=== PATIENT | female | born 1930 | race Caucasian/White ===

== ENCOUNTER 2017-05-15 15:30 | Observation (INO) | payer MEDICARE, BC ==
[2017-05-15 16:11] LABS: ALT (SGPT) 21 U/L (8-55); AST (SGOT) 23 U/L (5-34); Alkaline Phosphatase 83 U/L (40-150); Anion Gap 11 mmol/L (10-20); BUN (Urea Nitrogen) 21 mg/dL (9.8-20.1); Bilirubin, Total 0.3 mg/dL (0.2-1.2); Calc. Creatinine Clearance 0 mL/min (70-130); Calcium 9.3 mg/dL (7.8-10.44); Carbon Dioxide 31 mmol/L (23-31); Chloride 99 mmol/L (98-107); Estimated GFR-MDRD 57; Globulin 2.7 g/dL (2.4-3.5); Protein, Total 6.4 g/dL (6.0-8.3)
[2017-05-15 16:16] LABS: #Basophils 0.1 thou/uL (0.0-0.2); #Eosinphils 0.1 thou/uL (0.0-0.7); #Lymphocytes 3.5 thou/uL (1.20-3.40); #Monocytes 0.8 thou/uL (0.11-0.59); #Neutrophils 10.9 thou/uL (1.40-6.50); %Basophils 0.4 % (0.0-1.0); %Eosinophils 0.9 % (0.0-10.0); %Lymphocytes 22.6 % (21.0-51.0); %Monocytes 5.4 % (0.0-10.0); Mean Platelet Volume 7.3 fL (7.4-10.4); Red Blood Cell (RBC) Count 4.21 mill/uL (4.20-5.40); White Blood Cell (WBC) Count 15.5 thou/uL (4.8-10.8)
[2017-05-15] MEDS ORDERED: Enoxaparin Sodium 100 MG/ML SYRINGE ONE (17:21)
--- NOTE | 2017-05-15 17:24 | RAD ---
AP VIEW PELVIS: Date: 05/15/17 HISTORY: 86-year-old female with history of swelling and erythema left thigh. FINDINGS: AP view pelvis obtained. There is an AxiaLIF screw in the lumbosacral region. The pelvis is unremarka ble. No evidence of pelvic fractures, subluxations, or bony lesions seen. IMPRESSION: Unremarkable AP view of pelvis. POS: [facility]
--- NOTE | 2017-05-15 17:29 | RAD ---
2 VIEWS LEFT HIP: Date: 05/15/17 COMPARISON: None. HISTORY: Swelling, erythema, pain radiating down left lower extremity. FINDINGS: Body habitus limits detailed assessment. There is no displaced fracture or evidence of dislocation se en. Metallic screw overlies the lumbosacral junction. IMPRESSION: No displaced fracture or evidence of dislocation seen. POS: [facility]
[2017-05-15 17:31] LABS: PTT 29.1 SEC (22.9-36.1); Prothrombin Time 13.1 SEC (12.0-14.7)
--- NOTE | 2017-05-15 17:31 | ULT ---
LEFT LOWER EXTREMITY VENOUS DOPPLER ULTRASOUND EVALUATION: Date: 05/15/17 HISTORY: Left lower extremity pain and edema. TECHNIQUE: Multiple longitudinal and transverse images of the left lower extremity venous systems is obtained us ing a multihertz linear array transducer. Real-time, color flow, and spectral waveform Doppler analys is used to evaluate left lower extremity venous systems. FINDINGS: Images demonstrate noncompressible clot seen in the distal left superficial femoral vein. Normal flow and no evidence of clot is seen in the left common femoral vein, proximal mid superficial femoral ve in, popliteal vein, posterior tibial vein, and post-trifurcation veins. In addition, the left greater saphenous vein is also patent. IMPRESSION: Some noncompressible clot is present in the distal left superficial femoral vein. This is compatible with acute clot. POS: [facility]
[2017-05-15 17:39] LABS: Troponin I Less than 0.010 ng/mL (< 0.028)
[2017-05-15] MEDS ORDERED: Meropenem 1 GM in Sodium Chloride 0.9% 100 ML IVPB SCH (18:30)
--- NOTE | 2017-05-15 18:47 | RAD ---
ONE VIEW CHEST: History: Cough. Left leg swelling and pain. Comparison: None. FINDINGS: Atherosclerosis of the aorta. Normal cardiac silhouette. The pulmonary vessels and hilum are normal. Costophrenic angles are clear. Partial obscuration of the descending thoracic aorta due to left lower lobe infiltrate. There is no pneumothorax or osseous abnormality. Coronary artery stent is identifie d. IMPRESSION: 1. Left lower lobe infiltrate. 2. Atherosclerosis of the aorta. POS: [facility]
[2017-05-15 18:49] LABS: Lactic Acid - Sepsis 3.2 mmol/L (0.5-2.2)
[2017-05-15] MEDS ORDERED: Acetaminophen 500 MG TAB ONE (19:24)
[2017-05-15 21:05] LABS: Bilirubin Negative (Negative); Blood, Urine Small (Negative); Glucose, Urine (Dipstick) Negative (Negative); Ketone, Urine Negative (Negative); Nitrite Negative (Negative); Protein, Urine (Dipstick) Negative (Neg-Trace); Urobilinogen 0.2 mg/dL (0.2-1.0)
[2017-05-15 21:07] LABS: Bacteria/HPF 2+ HPF (None Seen); Hyaline Casts/LPF 7-10 HYALINE CAST LPF (0-3 Hyaline); RBC/HPF 21-50 HPF (0-3); Squamous Epithelial None Seen HPF (0-3)
--- NOTE | 2017-05-15 22:04 | PDOC.EVN ---
Event Note - Event Note Event Note: [id number] 1. UTI 2. Left superficial vein thrombus 3. HTN 4. H/O GERD PLAn SEE ORDERS
[2017-05-15] MEDS ORDERED: Sodium Chloride 0.9% 1,000 ML IV SCH (23:00)
[2017-05-15] MEDS ORDERED: Acetaminophen 325 MG TAB PO PRN (23:00)
[2017-05-15] MEDS ORDERED: hydrALAZINE 20 MG/ML VIAL SLOW IVP PRN (23:04)
[2017-05-16] MEDS ORDERED: Melatonin 3 MG TAB PO PRN (02:32)
[2017-05-16] MEDS ORDERED: HYDROcodone/Acetaminophen 5/325 mg Tablet ONE ×3 (02:33→15:36)
--- NOTE | 2017-05-16 03:21 | HP ---
DATE OF ADMISSION: 05/15/2017 CHIEF COMPLAINT: Left leg swelling and pain. HISTORY OF PRESENT ILLNESS: Patient is an 86-year-old female with the past medical history of hyperl ipidemia, chronic back pain, hypertension, GERD, neuropathy, now complaining of left leg pain. Patie nt complains of left leg pain for the past 1 month, but the pain persisted today. The patient compla ins leg swelling for the past few days, pain is mainly on the left leg 10/10, currently 5/10, improve s with some pain medication. Complains of swelling and redness also. Denies any fever, denies any c hills, denies any nausea, denies any vomiting, denies any chest pain, denies any trouble breathing. PAST MEDICAL HISTORY: As per HPI. PAST SURGICAL HISTORY: Hysterectomy, bilateral knee surgeries. SOCIAL HISTORY: Denies smoking, denies alcohol, denies any drugs. FAMILY HISTORY: Positive for heart problems. MEDICATIONS: Reviewed. ALLERGIES: PENICILLIN and SULFA. REVIEW OF SYSTEMS: Constitutional: Denies any fever, denies any chills. Eyes: Denies any vision p roblems. Ears: Denies any hearing loss. Neck: Denies any neck pain. Cardiovascular system: Jf es any chest pain. Respiratory system: Denies any cough, denies any sputum production. Gastrointes tinal: Denies nausea, denies vomiting. Musculoskeletal: Positive for left leg swelling and pain. Cranial nerve system: Denies syncope. Psychiatric: Denies anxiety. Integument: Denies any rash. All other review of systems are reviewed and are negative. PHYSICAL EXAMINATION: CONSTITUTIONAL/VITAL SIGNS: At the time of H and P performed, temperature is 99.2, heart rate 109/69 , pulse ox 97%, heart rate 75. GENERAL: Patient appears comfortable. HEENT: Anterior naris patent. Nose normal. Ears normal. Teeth intact. Tongue is moist. NECK: Supple, no JVD. CARDIOVASCULAR SYSTEM: S1, S2 present. Regular rate and rhythm, no murmurs, no rubs, no gallops. RESPIRATORY SYSTEM: No wheezing, no rhonchi. Breath sounds present bilaterally. GASTROINTESTINAL: Abdomen is soft, nontender, no guarding, no organomegaly, no masses felt. MUSCULOSKELETAL: Left leg positive for swelling. INTEGUMENTARY: Positive for left leg erythema at the thigh. PSYCHIATRIC: Mood is appropriate at this time. CRANIAL NERVOUS SYSTEM: Cranial nerves intact. Follows commands. Strength intact. Sensory intact. LABORATORY DATA: Labs at the time of H and P performed, UA positive for wbc's greater than 50, 2+ ba cteria. BMP showed sodium 137, potassium 3.7, chloride 99, CO2 31, BUN of 21, creatinine 0.93. Whit e count 15.1, hemoglobin 13.4, platelet count is 259. PT 13.1, INR 1. ASSESSMENT AND PLAN: The patient is an 86-year-old female: 1. Left leg swelling plus left superficial vein thrombosis. Plan to continue Lovenox. ED physician did speak to the Oncologist. We will wait for that input. We will monitor the patient closely. 2. Urinary tract infection. Plan to start patient on intravenous meropenem and plan to send urine f or culture and sensitivity. 3. History of hypertension, monitor blood pressures, continue home blood pressure medications. 4. History of neuropathy. Continue Neurontin. 5. History of gastroesophageal reflux disease. Continue proton pump inhibitor. The case was discussed in detail with the patient. Patient is FULL CODE.
[2017-05-16 04:06] LABS: #Eosinphils 0.4 thou/uL (0.0-0.7); #Lymphocytes 3.7 thou/uL (1.20-3.40); #Monocytes 0.6 thou/uL (0.11-0.59); #Neutrophils 4.4 thou/uL (1.40-6.50); %Basophils 0.5 % (0.0-1.0); %Eosinophils 4.4 % (0.0-10.0); %Lymphocytes 40.4 % (21.0-51.0); %Monocytes 6.6 % (0.0-10.0); Hematocrit 36.2 % (36.0-47.0); Mean Platelet Volume 7.5 fL (7.4-10.4); Red Blood Cell (RBC) Count 3.75 mill/uL (4.20-5.40); White Blood Cell (WBC) Count 9.1 thou/uL (4.8-10.8)
[2017-05-16 04:19] LABS: Anion Gap 11 mmol/L (10-20); BUN (Urea Nitrogen) 18 mg/dL (9.8-20.1); Calc. Creatinine Clearance 0 mL/min (70-130); Calcium 8.7 mg/dL (7.8-10.44); Carbon Dioxide 27 mmol/L (23-31); Chloride 103 mmol/L (98-107); Estimated GFR-MDRD 67
[2017-05-16 05:52] LABS: Anion Gap 10 mmol/L (10-20); BUN (Urea Nitrogen) 18 mg/dL (9.8-20.1); Calc. Creatinine Clearance 0 mL/min (70-130); Calcium 8.6 mg/dL (7.8-10.44); Carbon Dioxide 28 mmol/L (23-31); Chloride 104 mmol/L (98-107); Estimated GFR-MDRD 67; Magnesium 1.6 mg/dL (1.6-2.6)
[2017-05-16] MEDS ORDERED: Meropenem 1 GM in Sodium Chloride 0.9% 100 ML IVPB SCH (06:00)
[2017-05-16] MEDS ORDERED: Enoxaparin Sodium 100 MG/ML SYRINGE ONE (10:32)
[2017-05-16] MEDS ORDERED: Acetaminophen 650 MG Suppository ONE (11:39)
[2017-05-16] MEDS ORDERED: Acetaminophen 325 MG TAB ONE (11:40)
--- NOTE | 2017-05-16 13:07 | PDOC.PN ---
- Subjective Encounter Start Date: 05/16/17 Encounter Start Time: 11:00 Subjective: still has pain in left LE, no sob -: has been wheelchair bound from atleast 2 yrs now due to severe back pain -: no chest pain or palp - Objective MAR Reviewed: Yes Result Diagrams: 05/16/17 03:30 05/16/17 05:11 Phys Exam - Physical Examination HEENT: PERRLA, moist MMs Neck: no JVD, supple Respiratory: no wheezing, no rales Cardiovascular: RRR, no significant murmur Gastrointestinal: soft, no distention, positive bowel sounds Musculoskeletal: no edema, pulses present Neurological: non-focal, moves all 4 limbs Psychiatric: A&O x 3 Dx/Plan (1) Thrombophlebitis of leg, left, superficial Code(s): I80.02 - PHLEBITIS AND THOMBOPHLB OF SUPERFIC VESSELS OF L LOW EXTREM Status: Acute (2) Chronic back pain Code(s): M54.9 - DORSALGIA, UNSPECIFIED; G89.29 - OTHER CHRONIC PAIN Status: Chronic Qualifiers: Back pain location: low back pain (3) SVT (supraventricular tachycardia) Code(s): I47.1 - SUPRAVENTRICULAR TACHYCARDIA Status: Acute (4) UTI (urinary tract infection) Status: Acute Qualifiers: Urinary tract infection type: acute cystitis Hematuria presence: without hematuria Qualified Code(s): N30.00 - Acute cystitis without hematuria (5) HTN (hypertension) Code(s): I10 - ESSENTIAL (PRIMARY) HYPERTENSION Status: Chronic Qualifiers: Hypertension type: essential hypertension Qualified Code(s): I10 - Essential (primary) hypertension - Plan home meds to be updated on system -: is on meropenem for uti, will scale down antibiotics once prelim cs are rolando -: has poor functional status with supf dvt, hence on lovenox 90q12h -: pt is DNR, I have confirmed this with her, also she has willed her body to -: -A&[facility]. Lives at [facility] * . Review of Systems - Medications/Allergies Allergies/Adverse Reactions: Allergies Allergy/AdvReac Type Severity Reaction Status Date / Time Penicillins Allergy Unverified 05/15/17 18:16 Sulfa (Sulfonamide Allergy Unverified 05/15/17 18:16 Antibiotics) Medications: Current Medications Acetaminophen (Tylenol) 650 mg PO Q4H PRN PRN Reason: Headache/Fever or Pain Hydrocodone Bitart/Acetaminophen ([place] 5/325) 1 tab PO Q4H PRN PRN Reason: Moderate Pain (4-6) Enoxaparin Sodium (Lovenox) 90 mg SC 0900,2100 YADY Hydralazine HCl (Apresoline) 5 mg SLOW IVP Q4H PRN PRN Reason: SBP Greater Than 170 Meropenem 1 gm/ Sodium (Chloride) 100 mls @ 200 mls/hr IVPB Q8HR YADY Sodium Chloride (Normal Saline 0.9%) 1,000 mls @ 50 mls/hr IV .Q20H YADY Melatonin (Melatonin) 6 mg PO HS PRN PRN Reason: Insomnia Sodium Chloride (Flush - Normal Saline) 10 ml IVF Q12HR YADY Sodium Chloride (Flush - Normal Saline) 10 ml IVF PRN PRN PRN Reason: Saline Flush
[2017-05-16] MEDS: MEROPENEM 1 GM/50 ML 1 GM in Premix Bag 1 BAG IVPB SCH ×2 (14:00→21:13)
[2017-05-16 17:58] VITALS: BMI 33.4
[2017-05-16] MEDS: Sodium Chloride 0.9% 1,000 ML IV SCH ×2 (18:11→21:17)
[2017-05-16] MEDS: Enoxaparin Sodium 100 MG/ML SYRINGE SC SCH ×2 (18:11→20:28)
--- NOTE | 2017-05-16 19:34 | CON ---
DATE OF CONSULTATION: 05/16/2017 REASON FOR CONSULTATION: DVT. HISTORY OF PRESENT ILLNESS: Ms. Rm is a pleasant 86-year-old female, who is wheelchair bound for chronic back pain. She complained of left leg pain and swelling for the past month. She admits to occasional erythema. Denies any chest pain or shortness of breath. She was sent to the emergency room for evaluation. A vascular ultrasound showed a clot in the distal left superficial femoral vein. She had a hip and pelvis x-ray, which were unremarkable. She had a chest x-ray, which showed a left lower lobe infiltrate. She had leukocytosis with a WBC count of 15.5 on arrival. The patient was started on Lovenox 90 mg b.i.d. She received a dose of meropenem for possible pneumonia and has been admitted for further treatment. We were asked for recommendations regarding anticoagulation. PAST MEDICAL HISTORY: 1. Hyperlipidemia. 2. Chronic back pain. 3. Hypertension. 4. Gastroesophageal reflux disease. 5. Neuropathy. 6. Frequent urinary tract infections. PAST SURGICAL HISTORY: Hysterectomy and bilateral knee replacement. ALLERGIES: PENICILLIN and SULFA. HOME MEDICATIONS: Reviewed from her facility paperwork. FAMILY HISTORY: Her daughter from esophageal cancer. SOCIAL HISTORY: , lives at a correction facility. No alcohol, tobacco, or illicit drug use. REVIEW OF SYSTEMS: Ten-point review of systems is negative except for noted in HPI. PHYSICAL EXAMINATION: VITAL SIGNS: Currently pending. GENERAL: This is a well-developed, well-nourished female in no acute distress. HEENT: Normocephalic, atraumatic. Pupils equal and reactive to light. NECK: Supple. CARDIOVASCULAR: Regular rate and rhythm. LUNGS: Clear to auscultation. ABDOMEN: Soft, nontender, bowel sounds are positive. EXTREMITIES: She has mild swelling in the left lower extremity. No erythema. GENITOURINARY: She has a Hodges catheter in place. SKIN: No rash. HEMATOLOGIC: No petechia or purpura. NEUROLOGICAL: Nonfocal. PSYCHIATRIC: The patient is alert and oriented and appropriate. PERTINENT LABORATORY AND X-RAYS: Current WBCs are 9.1, hemoglobin 11.9, hematocrit 36.2, platelet count is 198,000. She has got 48% neutrophils, 40% lymphocytes. PT is 13.1, INR is 1.0, PTT is 29.1. Sodium is 138, potassium 3.5 , chloride 104, CO2 is 28, BUN is 18, creatinine 0.81, lactic acid is 1.2, calcium 8.6, magnesium is 1.6, total bilirubin 0.3, AST is 23, ALT is 21, alkaline phosphatase is 83. CK-MB is 1.1, troponin is less than 0.010. BNP is 57.1. Serum total protein 6.4, albumin 3.4, globulin is 2.7. Urine showed 2+ bacteria with large leukocyte esterase. IMPRESSION: 1. Left lower extremity deep venous thrombosis. 2. Urinary tract infection. DISCUSSION: The patient is wheelchair bound and requires maximum assistance from the bed to the wheelchair. She is at low risk for fall given her maximum assistance. She should continue anticoagulation for her DVT. Recommend oral anticoagulation. She would need to take anticoagulation for 3 months. This can be managed by her primary care. Thank you for allowing us to give our recommendations. JULY
[2017-05-16] MEDS ORDERED: Ondansetron HCl/PF 4 MG/2 ML Vial SLOW IVP PRN (20:02)
[2017-05-16] MEDS: HYDROcodone/Acetaminophen 5/325 mg Tablet PO PRN (21:12)
--- NOTE | 2017-05-16 22:42 | CON ---
DATE OF CONSULTATION: 05/16/2017 HISTORY OF PRESENT ILLNESS: Patient is an 86-year-old woman with a history of hypertension, who was found to have an irregular heart rhythm. The patient presented to the emergency room with nausea, vomiting, and left leg pain. She underwent an ultrasound, which revealed her to have evidence of a superficial venous thrombosis. While on telemetry, the patient was noted to have an irregular heart rhythm. The patient denied having any palpitations. The patient has no known cardiac history. She denies having any chest discomfort or dyspnea. The patient lives in a prison and is wheelchair bound. PAST MEDICAL HISTORY: 1. Severe chronic back pain. 2. Hypertension. 3. Depression. 4. Gastroesophageal reflux. PAST SURGICAL HISTORY: Cholecystectomy and hysterectomy. SOCIAL HISTORY: Nonsmoker. ALLERGIES: She is allergic to PENICILLIN and SULFA. MEDICATIONS ON ADMISSION: Include Lipitor 10 mg Monday, Monday, and Monday; metoprolol 25 XL daily; Prilosec 20 daily; aspirin 81 daily; Colace 100 b.i.d.; melatonin 5 daily; omeprazole 20 daily; fentanyl 50 mcg tablet every third day ; gabapentin 300 daily, ciprofloxacin 250 daily. REVIEW OF SYSTEMS: Ten-point system otherwise is noticeable for nausea, vomiting, and abdominal discomfort. Ten-point system, otherwise unremarkable. PHYSICAL EXAMINATION: GENERAL: Obese woman in no acute distress. VITAL SIGNS: Blood pressure 173/109. NECK: Full. LUNGS: Clear to auscultation. HEART: Regular rate and rhythm, normal S1, S2, 2/6 systolic murmur. ABDOMEN: Distended. EXTREMITIES: Showed trace edema. SKIN: Warm and dry. NEUROLOGIC: Nonfocal. VASCULAR: Radial pulses are 2+. LABORATORY DATA: White blood cell count 9.1, hemoglobin 11.9, hematocrit 36.2, platelets 198. Sodium was 138, potassium 3.5, chloride 104, bicarbonate 20, BUN 18, creatinine is 0.81, glucose is 95. EKG revealed her to have normal sinus rhythm with a normal ECG. night monitor revealed supraventricular tachycardia at the rate of approximately 150. IMPRESSION: 1. Supraventricular tachycardia. 2. Hypertension. 3. Superficial venous thrombosis. 4. Probable aortic stenosis. 5. Dyslipidemia. 6. Obesity. 7. Chronic back pain. PLAN: This unfortunate woman presented with superficial venous thrombosis. She was noted be in SVT. From a cardiac standpoint, we will increase the dose of her beta kemar. We will check the patient's echocardiogram. We will follow this patient with you through her hospitalization. JULY
[2017-05-17 05:12] LABS: #Basophils 0.1 thou/uL (0.0-0.2); #Eosinphils 0.2 thou/uL (0.0-0.7); #Lymphocytes 3.1 thou/uL (1.20-3.40); #Monocytes 0.7 thou/uL (0.11-0.59); %Basophils 0.6 % (0.0-1.0); %Eosinophils 2.6 % (0.0-10.0); %Monocytes 7.6 % (0.0-10.0); Hematocrit 36.7 % (36.0-47.0); Mean Platelet Volume 7.3 fL (7.4-10.4); Red Blood Cell (RBC) Count 3.78 mill/uL (4.20-5.40); White Blood Cell (WBC) Count 9.1 thou/uL (4.8-10.8)
[2017-05-17 05:13] LABS: Anion Gap 9 mmol/L (10-20); BUN (Urea Nitrogen) 15 mg/dL (9.8-20.1); Calc. Creatinine Clearance 78 mL/min (70-130); Calcium 8.8 mg/dL (7.8-10.44); Carbon Dioxide 30 mmol/L (23-31); Chloride 105 mmol/L (98-107); Estimated GFR-MDRD 71
[2017-05-17] MEDS: HYDROcodone/Acetaminophen 5/325 mg Tablet PO PRN ×3 (05:20→16:05)
[2017-05-17] MEDS: MEROPENEM 1 GM/50 ML 1 GM in Premix Bag 1 BAG IVPB SCH ×2 (05:21→15:45)
[2017-05-17] MEDS ORDERED: FLU VACC TS2017-18 (>65YR) 0.5 ML SYRINGE IM ONE (09:00)
[2017-05-17] MEDS: Enoxaparin Sodium 100 MG/ML SYRINGE SC SCH (09:54)
[2017-05-17] MEDS ORDERED: Bisacodyl 10 MG SUPP PR SCH (10:15)
[2017-05-17] MEDS ORDERED: Ondansetron ODT 4 MG TAB PO PRN (11:16)
--- NOTE | 2017-05-17 11:30 | PDOC.PN ---
- Subjective Encounter Start Date: 05/17/17 Encounter Start Time: 07:00 Subjective: no sob or palp -: pain in left LE is better now - Objective Resuscitation Status: Resuscitation Status DNR:Do Not Resuscitate MAR Reviewed: Yes Vital Signs & Weight: Vital Signs (12 hours) Temp Pulse Resp BP Pulse Ox 05/17/17 07:11 98.4 F 64 18 129/67 96 05/17/17 04:00 97.9 F 66 18 125/59 L 93 L Weight Weight 207 lb I&O: 05/16/17 05/17/17 05/18/17 06:59 06:59 06:59 Intake Total 0 Balance 0 Result Diagrams: 05/17/17 04:45 05/17/17 04:45 Phys Exam - Physical Examination HEENT: PERRLA, moist MMs Neck: no JVD, supple Respiratory: no wheezing, no rales Cardiovascular: RRR, no significant murmur Gastrointestinal: soft, non-tender, positive bowel sounds Musculoskeletal: pulses present Neurological: non-focal, moves all 4 limbs Psychiatric: A&O x 3 Dx/Plan (1) Thrombophlebitis of leg, left, superficial Code(s): I80.02 - PHLEBITIS AND THOMBOPHLB OF SUPERFIC VESSELS OF L LOW EXTREM Status: Acute (2) Chronic back pain Code(s): M54.9 - DORSALGIA, UNSPECIFIED; G89.29 - OTHER CHRONIC PAIN Status: Chronic Qualifiers: Back pain location: low back pain (3) SVT (supraventricular tachycardia) Code(s): I47.1 - SUPRAVENTRICULAR TACHYCARDIA Status: Resolved Comment: brief 4 sec non sustained (4) UTI (urinary tract infection) Status: Acute Qualifiers: Urinary tract infection type: acute cystitis Hematuria presence: without hematuria Qualified Code(s): N30.00 - Acute cystitis without hematuria (5) HTN (hypertension) Code(s): I10 - ESSENTIAL (PRIMARY) HYPERTENSION Status: Chronic Qualifiers: Hypertension type: essential hypertension Qualified Code(s): I10 - Essential (primary) hypertension - Plan eliquis for 45 days, d/w over phone -: is on cipro for chronic suppresive treatment, ua likely is colonization -: d/w son at bedside -: dc pt back to [facility] today -: hemostable * .
[2017-05-17 15:57] VITALS: BP 168/81; TEMP 98.8
--- NOTE | 2017-05-17 19:42 | DIS ---
DATE OF ADMISSION: 05/15/2017 DATE OF DISCHARGE: 05/17/2017 DISCHARGE DISPOSITION: To assisted living facility at [facility]. PRIMARY DISCHARGE DIAGNOSES: Superficial thrombophlebitis of left lower extremity with pain; poor fu nctional status; brief episode of supraventricular tachycardia, completely resolved after 4 seconds i n the ER. 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 PROCEDURES DONE DURING HOSPITALIZATION: The patient has had ultrasound venous Doppler of lower extre mities done which showed noncompressible clot present in distal left superficial femoral vein. Left hip x-ray done showed no acute fractures or dislocation. Pelvic x-ray was unremarkable. Echo with 2 D Doppler done showed an EF of 50%-55%, mild to moderate mitral regurgitation was seen. Blood cultur es x2 no growth. Urine culture showed mixed anne which likely is contaminated. Had an initial whit e count of 15 with H&H of 13 and 41, discharge white count is 9 with H&H of 11 and 36. PT/INR 13 and 1.0. PTT 29 on the day of admission. Discharge BUN and creatinine are 15 and 0.7. BNP was 57. Ca rdiac enzyme x1 was negative. DISCHARGE MEDICATIONS: Eliquis 5 mg p.o. twice daily for a total of 45 days, amitriptyline 25 mg p.o . at bedtime, aspirin 81 mg p.o. daily. Atorvastatin 10 mg on Monday, Monday, and Monday. Calciu m with Vitamin D 1 tablet twice daily, ciprofloxacin 250 mg p.o. daily on chronic suppressive therapy for UTI, Colace 100 mg twice daily, Lexapro 20 mg daily, fentanyl 50 mcg q.72 hourly, gabapentin 600 mg p.o. at bedtime and 300 mg p.o. daily, melatonin 5 mg p.o. at bedtime, Lopressor extended release 25 mg daily, omeprazole 20 mg daily, MiraLax 17 grams twice daily. ALLERGIES: PENICILLIN and SULFA. DISCHARGE PLAN: Patient to follow up with Dr. Barlow in 2 weeks. BRIEF COURSE DURING HOSPITALIZATION: The patient initially got admitted for left leg swelling and pa in. She has had ultrasound venous Doppler done in the ER which showed superficial femoral vein throm bosis with thrombophlebitis. She also had 4-second duration of SVT which resolved completely in the ER. In view of this, she was placed under observation on telemetry. She has had consultation with O ncology and Cardiology. Per Oncology advice, patient was placed on Lovenox 90 mg subcu q.12 hourly. This has been switched over to 5 mg Eliquis twice daily. The patient has superficial DVT and is cur rently symptomatic and in view of this, needs to continue for a total duration of 45 days. Prior to this, she will be evaluated by Dr. Barlow, her primary care physician, whom I have given complete updates to see if she still requires Eliquis or not. The patient is on chronic suppressive therapy for recurrent UTI with Cipro and needs to continue the same. She is otherwise hemodynamically stable and I have given complete updates to her son who is here at bedside prior to discharge as well. Ple ase see a [id number].
--- NOTE | 2017-06-05 13:26 | EKG ---
Test Reason : Blood Pressure : / mmHG Vent. Rate : 067 BPM Atrial Rate : 067 BPM P-R Int : 206 ms QRS Dur : 074 ms QT Int : 424 ms P-R-T Axes : 030 009 021 degrees QTc Int : 448 ms Normal sinus rhythm Normal ECG Confirmed by ALFREDO NOEL, DANIS ([id number]), technical writer and editor CHANDANA EASTON ([id number]) on 06/05/2017 1:25:51 PM Referred By: Confirmed By:DANIS FUENTES MD
== END 2017-05-17 16:19 ==
LOC: ERS 15:30 → ERHOLD 18:03 → 2NO 05-16 15:46
PROVIDERS: ADMIT Internal Medicine; ATTEND Internal Medicine
DX: I80.02 Phlebitis and thrombophlebitis of superficial vessels of left lower extremity (principal); I47.1 Supraventricular tachycardia; M54.9 Dorsalgia, unspecified; G89.29 Other chronic pain; I10 Essential (primary) hypertension; N39.0 Urinary tract infection, site not specified; G62.9 Polyneuropathy, unspecified; M79.605 Pain in left leg; K21.9 Gastro-esophageal reflux disease without esophagitis; Z66 Do not resuscitate; Z74.09 Other reduced mobility; Z79.2 Long term (current) use of antibiotics; Z79.82 Long term (current) use of aspirin; Z79.01 Long term (current) use of anticoagulants; Z79.899 Other long term (current) drug therapy; Z88.0 Allergy status to penicillin; Z88.2 Allergy status to sulfonamides; Z96.653 Presence of artificial knee joint, bilateral; Z90.49 Acquired absence of other specified parts of digestive tract; Z90.710 Acquired absence of both cervix and uterus
CPT/HCPCS: 71010; 72170; 73502; 80048 ×3; 80053; 82550; 82553; 83605; 83735; 83880; 84484; 85025 ×3; 85610; 85730; 87040; 87086; 93005; 93306; 93971; 96361; 96365; 96366 ×3; 96372 ×3; 96375; 97139; 97530 ×2; 99291; G0378 ×2; G8978; G8979; G8987; G8988; 36415; 81003; 81015; A4216; J0360; J1650; J2185; J2405; J7050; Q0162